=== PATIENT | male | born 1965 | race Caucasian/White ===

== ENCOUNTER 2016-07-04 19:28 | Emergency (ER) | payer OTHER, BC ==
[~2016-07-04] VITALS: Ht 185.4 cm; Wt 122.8 kg
[2016-07-04 20:08] LABS: HEMATOCRIT 48.2 % (38.0-50.0); MCH 32.4 PG (29.0-34.0); MCHC 34.4 G/DL (30.0-36.0); MEAN PLAT.VOLUME 9.4 uM^3 (9.0-12.4); PLATELET COUNT 154 K/uL (156-360); RBC DIS.WIDTH-CV 11.9 % (11.8-14.6); RBC DIS.WIDTH-SD 40.4 % (39-53); RED BLOOD COUNT 5.13 M/uL (4.00-5.50)
[2016-07-04 20:19] LABS: CHLORIDE 104 mEq/L (99-109); SODIUM 140 mEq/L (136-147)
[2016-07-04 20:21] LABS: GLUCOSE 119 mg/dL (70-99)
[2016-07-04 20:22] LABS: ANION GAP 11 MEQ/L (2-14)
[2016-07-04 20:25] LABS: GFR ESTIMATE (CALCULATED) > 59 mL/min/
[2016-07-04 20:26] LABS: UREA NITROGEN (BUN) 12 mg/dL (9-23)
[2016-07-04 20:28] LABS: TROP-I INTERPRETATION NEGATIVE; TROPONIN-I < 0.01 ng/mL (0.0-0.30)
[2016-07-04 21:32] LABS: D-DIMER ELISA 0.19 mg/L FEU (< 0.57)
[2016-07-04 21:49] LABS: TROP-I INTERPRETATION NEGATIVE; TROPONIN-I < 0.01 ng/mL (0.0-0.30)
[2016-07-04] MEDS ORDERED: PROVENTIL HFA6.7 GM IH (22:05)
[2016-07-04] MEDS ORDERED: VALIUM5 MG PO (22:05)
[2016-07-04 22:12] VITALS: BP 132/77
== END 2016-07-04 22:15 | disposition home or self-care (01) ==
LOC: EME 19:28
PROVIDERS: Emergency Medicine
DX: R07.9 Chest pain, unspecified (principal); S29.9XXA Unspecified injury of thorax, initial encounter; X58.XXXA Exposure to other specified factors, initial encounter
CPT/HCPCS: 71020; 80048; 84484; 85027; 85379; 93005; 99281; 99284